=== PATIENT | female | born 1940 | race Caucasian/White ===

== ENCOUNTER 2024-05-09 10:23 | Outpatient (CLI) | payer MEDICARE | END 2024-05-09 10:24 | disposition home or self-care (01) | LOC: CSHMAMMO 10:23 | PROVIDERS: ATTEND Family Medicine | DX: M85.89 Other specified disorders of bone density and structure, multiple sites (principal) | CPT/HCPCS: 77080 ==

== ENCOUNTER 2024-05-18 12:11 | Outpatient (CLI) | payer MEDICARE | END 2024-05-18 12:12 | disposition home or self-care (01) | LOC: CSHRAD 12:11 | PROVIDERS: ATTEND Family Medicine | DX: M25.552 Pain in left hip (principal) ==